=== PATIENT | male | born 1970 | race Caucasian/White ===

== ENCOUNTER 2016-10-29 15:02 | Emergency (ER) | payer MEDICARE, OTHER ==
--- NOTE | 2016-10-30 01:50 | RAD ---
THREE VIEWS OF THE LEFT ANKLE COMPARISON: None. HISTORY: Left ankle pain. FINDINGS: Three views of the left ankle show no evidence of acute fracture or dislocation. No degenerative ch anges are seen. Mild soft tissue swelling is seen. IMPRESSION: Unremarkable exam. POS: [facility]
--- NOTE | 2016-10-30 05:57 | RAD ---
THREE VIEWS OF THE LEFT FOOT COMPARISON: None. HISTORY: Left foot pain. FINDINGS: Three views of the left foot show no evidence of acute fracture or dislocation. No degenerative orlin nges are seen. No soft tissue swelling is present. IMPRESSION: No evidence of acute osseous abnormality. POS: [facility]
== END 2016-10-29 16:20 | disposition home or self-care (01) ==
LOC: NAV ERS 15:02
DX: S93.402A Sprain of unspecified ligament of left ankle, initial encounter (principal); F17.210 Nicotine dependence, cigarettes, uncomplicated; F17.220 Nicotine dependence, chewing tobacco, uncomplicated; X58.XXXA Exposure to other specified factors, initial encounter

== ENCOUNTER 2016-12-13 12:37 | Outpatient (CLI) | payer MEDICARE, OTHER ==
[2016-12-13 13:39] LABS: ALT (SGPT) 17 U/L (0-55); AST (SGOT) 31 U/L (5-34); Albumin 4.1 g/dL (3.4-4.8); Alkaline Phosphatase 81 U/L (40-150); Anion Gap 15 mmol/L (10-20); BUN (Urea Nitrogen) 20 mg/dL (8.4-25.7); Bilirubin, Total 0.6 mg/dL (0.2-1.2); Calc. Creatinine Clearance 0 mL/min (70-130); Carbon Dioxide 28 mmol/L (23-31); Chloride 101 mmol/L (98-107); Estimated GFR-MDRD 63; Globulin 3.2 g/dL (2.4-3.5); Glucose 133 mg/dL (83-110); Potassium 3.3 mmol/L (3.5-5.1); Protein, Total 7.3 g/dL (5.8-8.1); Sodium 141 mmol/L (136-145)
[2016-12-13 14:04] LABS: #Basophils 0.2 thou/uL (0.0-0.2); #Eosinphils 0.4 thou/uL (0.0-0.7); #Lymphocytes 0.8 thou/uL (1.20-3.40); #Neutrophils 4.2 thou/uL (1.40-6.50); %Basophils 2.7 % (0.0-1.0); %Eosinophils 6.1 % (0.0-10.0); %Lymphocytes 12.1 % (21.0-51.0); %Monocytes 14.5 % (0.0-10.0); %Neutrophils 64.7 % (42.0-75.0); Hemoglobin 13.7 g/dL (14.0-18.0); Mean Corpuscular HGB CONC 33.6 g/dL (32.0-36.0); Mean Corpuscular Hemoglobin 30.4 pg (27.0-31.0); Mean Corpuscular Volume 90.3 fl (80.0-94.0); Mean Platelet Volume 8.8 fL (7.4-10.4); Platelet Count 181 thou/uL (130-400); RBC Distribution Width 13.3 % (11.5-14.5); Red Blood Cell (RBC) Count 4.51 mill/uL (4.70-6.10); White Blood Cell (WBC) Count 6.5 thou/uL (4.8-10.8)
[2016-12-13 14:05] LABS: Giant Platelets SLIGHT; MDiff Complete? YES; PLT Morphology Comment Appears Adequate
== END 2016-12-13 12:38 | disposition home or self-care (01) ==
LOC: NAV LAB 12:37
PROVIDERS: ATTEND Internal Medicine
DX: Z01.818 Encounter for other preprocedural examination (principal)
CPT/HCPCS: 36415; 80053; 85025; 93005

== ENCOUNTER 2017-01-25 09:38 | Emergency (ER) | payer MEDICARE, OTHER ==
[2017-01-25] MEDS ORDERED: HYDROcodone/Acetaminophen 5/325 mg Tablet ONE (10:13)
[2017-01-25 11:01] LABS: #Basophils 0.1 thou/uL (0.0-0.2); #Eosinphils 0.3 thou/uL (0.0-0.7); #Lymphocytes 1.2 thou/uL (1.20-3.40); %Basophils 1.5 % (0.0-1.0); %Eosinophils 4.3 % (0.0-10.0); %Lymphocytes 17.8 % (21.0-51.0); %Monocytes 15.3 % (0.0-10.0); %Neutrophils 61.1 % (42.0-75.0); Hemoglobin 10.6 g/dL (14.0-18.0); Mean Corpuscular HGB CONC 33.1 g/dL (32.0-36.0); Mean Corpuscular Hemoglobin 28.5 pg (27.0-31.0); Mean Corpuscular Volume 86.2 fl (80.0-94.0); Mean Platelet Volume 7.5 fL (7.4-10.4); Platelet Count 175 thou/uL (130-400); Red Blood Cell (RBC) Count 3.73 mill/uL (4.70-6.10); White Blood Cell (WBC) Count 6.6 thou/uL (4.8-10.8)
--- NOTE | 2017-01-25 11:11 | RAD ---
THREE VIEW LEFT SHOULDER: Indication: Pain. FINDINGS: Moderate osteoarthritis is present. No fracture or dislocation. IMPRESSION: Osteoarthritis. POS: [facility]
[2017-01-25 11:15] LABS: Troponin I 0.017 ng/mL (< 0.028)
[2017-01-25 11:16] LABS: Anion Gap 18 mmol/L (10-20); BUN (Urea Nitrogen) 21 mg/dL (8.4-25.7); Calc. Creatinine Clearance 0 mL/min (70-130); Carbon Dioxide 26 mmol/L (23-31); Chloride 98 mmol/L (98-107); Estimated GFR-MDRD 54; Glucose 123 mg/dL (83-110); Potassium 3.7 mmol/L (3.5-5.1); Sodium 138 mmol/L (136-145)
== END 2017-01-25 11:57 | disposition home or self-care (01) ==
LOC: NAV ERS 09:38
DX: M19.012 Primary osteoarthritis, left shoulder (principal); I10 Essential (primary) hypertension; E78.5 Hyperlipidemia, unspecified; F17.220 Nicotine dependence, chewing tobacco, uncomplicated; Z79.899 Other long term (current) drug therapy
CPT/HCPCS: 80048; 84484; 85025; 85652; 86140; 93005

== ENCOUNTER 2017-01-30 14:09 | Outpatient (CLI) | payer MEDICARE, OTHER ==
--- NOTE | 2017-01-30 18:07 | CT ---
CT LEFT SHOULDER NONCONTRAST: History Left shoulder pain. Arthritis. FINDINGS: No acute fracture or dislocation are apparent. There are severe osteoarthritic changes to the gleno humeral joint including loss of joint space, osteophytosis, and a large subcortical cyst within the glenoid. Degenerative changes of the acromioclavicular joint are also apparent. Within the superior segment left lower lobe, linear atelectasis or scarring is present. More inferi josh within the left lower lobe, there is ill-defined atelectasis. An oval noncalcified 1.0 cm subp leural nodule is also evident. IMPRESSION: 1. Severe osteoarthritic changes of the left glenohumeral joint. No acute osseous abnormalities of the shoulder are demonstrated. 2. Right lower lobe pulmonary nodule partially visualized. Please consider full dedicated CT chest , with IV contrast, for full evaluation of the chest and better characterization. POS: [facility]
== END 2017-01-30 14:10 | disposition home or self-care (01) ==
LOC: NAV CT 14:09
PROVIDERS: ATTEND Internal Medicine
DX: M79.602 Pain in left arm (principal); R91.1 Solitary pulmonary nodule

== ENCOUNTER 2017-02-28 14:50 | Outpatient (CLI) | payer MEDICARE, OTHER ==
[2017-02-28 15:56] LABS: #Basophils 0.1 thou/uL (0.0-0.2); #Eosinphils 0.1 thou/uL (0.0-0.7); #Lymphocytes 0.9 thou/uL (1.20-3.40); #Monocytes 0.8 thou/uL (0.11-0.59); #Neutrophils 5.4 thou/uL (1.40-6.50); %Basophils 1.5 % (0.0-1.0); %Eosinophils 1.1 % (0.0-10.0); %Lymphocytes 12.1 % (21.0-51.0); %Monocytes 11.5 % (0.0-10.0); %Neutrophils 73.8 % (42.0-75.0); Hemoglobin 11.5 g/dL (14.0-18.0); Mean Corpuscular HGB CONC 32.7 g/dL (32.0-36.0); Mean Corpuscular Hemoglobin 28.9 pg (27.0-31.0); Mean Corpuscular Volume 88.2 fl (80.0-94.0); Mean Platelet Volume 9.1 fL (7.4-10.4); Platelet Count 117 thou/uL (130-400); RBC Distribution Width 14.7 % (11.5-14.5); Red Blood Cell (RBC) Count 3.98 mill/uL (4.70-6.10); White Blood Cell (WBC) Count 7.3 thou/uL (4.8-10.8)
--- NOTE | 2017-03-01 07:58 | RAD ---
TWO VIEW CHEST: 02/28/17 COMPARISON: 09/06/16 CLINICAL HISTORY: Lung cancer, adenopathy and pulmonary infiltrate. FINDINGS: There are patchy bibasilar opacities. The cardiac silhouette is enlarged with prominence of the pulm onary vasculature. The lungs are hyperinflated with interstitial prominence. Chest is otherwise rusty lar in appearance. IMPRESSION: Bibasilar opacities may be on the basis of atelectasis or pneumonia. No significant effusion. Enlarged cardiac silhouette and pulmonary vasculature indicating CHF. POS: [facility]
== END 2017-02-28 14:51 | disposition home or self-care (01) ==
LOC: NAV RAD 14:50
PROVIDERS: ATTEND Internal Medicine
DX: R91.8 Other nonspecific abnormal finding of lung field (principal)
CPT/HCPCS: 71020; 85025

== ENCOUNTER 2017-05-01 08:33 | Outpatient (CLI) | payer MEDICARE, OTHER ==
[2017-05-01 12:52] LABS: Anion Gap 19 mmol/L (10-20); BUN (Urea Nitrogen) 16 mg/dL (8.4-25.7); Calc. Creatinine Clearance 0 mL/min (70-130); Calcium 8.9 mg/dL (7.8-10.44); Carbon Dioxide 29 mmol/L (23-31); Chloride 99 mmol/L (98-107); Estimated GFR-MDRD 60; Glucose 114 mg/dL (83-110); Potassium 3.6 mmol/L (3.5-5.1); Sodium 143 mmol/L (136-145)
[2017-05-01 14:03] LABS: Hemoglobin 12.8 g/dL (14.0-18.0); Mean Corpuscular HGB CONC 31.5 g/dL (32.0-36.0); Mean Corpuscular Hemoglobin 28.8 pg (27.0-31.0); Mean Corpuscular Volume 91.3 fl (80.0-94.0); Mean Platelet Volume 8.2 fL (7.4-10.4); Platelet Count 190 thou/uL (130-400); RBC Distribution Width 17.2 % (11.5-14.5); Red Blood Cell (RBC) Count 4.43 mill/uL (4.70-6.10); White Blood Cell (WBC) Count 5.9 thou/uL (4.8-10.8)
[2017-05-01 14:04] LABS: Lymphocytes 21 % (21-51); MDiff Complete? YES; Monocytes 19 % (0-10); Neutrophil 60 % (42-75); PLT Morphology Comment Appears Adequate
== END 2017-05-01 08:34 | disposition home or self-care (01) ==
LOC: NAVSJIPCSP 08:33
PROVIDERS: ATTEND Urology
DX: N40.1 Benign prostatic hyperplasia with lower urinary tract symptoms (principal); M10.9 Gout, unspecified; Z79.899 Other long term (current) drug therapy
CPT/HCPCS: 36415; 80048; 84153; 84550; 85025

== ENCOUNTER 2017-05-03 11:03 | Outpatient (CLI) | payer MEDICARE, OTHER ==
[2017-05-03 13:19] LABS: Anion Gap 17 mmol/L (10-20); BUN (Urea Nitrogen) 16 mg/dL (8.4-25.7); Calc. Creatinine Clearance 0 mL/min (70-130); Calcium 8.6 mg/dL (7.8-10.44); Carbon Dioxide 30 mmol/L (23-31); Chloride 98 mmol/L (98-107); Estimated GFR-MDRD 71; Glucose 107 mg/dL (83-110); Potassium 3.2 mmol/L (3.5-5.1); Sodium 142 mmol/L (136-145)
== END 2017-05-03 11:04 | disposition home or self-care (01) ==
LOC: NAVSJIPCSP 11:03
PROVIDERS: ATTEND Internal Medicine
DX: R60.1 Generalized edema (principal)
CPT/HCPCS: 36415; 80048; 83880

== ENCOUNTER 2017-05-16 11:05 | Outpatient (CLI) | payer MEDICARE, OTHER ==
--- NOTE | 2017-05-16 15:47 | CT ---
CT LEFT ANKLE WITHOUT CONTRAST 05/16/17 HISTORY: Left ankle pain and swelling for three months. No injury. COMPARISON: Ankle radiographs from October 2016. FINDINGS: BONES: There is no acute fracture or malalignment. There is some small osteophytes of the posterior margin of the tibial lip and anterior tibial lip. There is some mild degenerative changes of the syndesmosi s. There is a small enthesophyte of the ATFL origin of the fibula. No large erosions. Lisfranc interval is maintained. SOFT TISSUES: There is circumferential soft tissue edema. This is probably within the superficial soft tissues wit h only minimal edema within the deep fascial soft tissues. TENDONS: Achilles tendon is intact. The extensor and flexor tendons are intact. Peroneal tendons are intact. IMPRESSION: 1. No acute osseous abnormality with only chronic changes as described above. 2. Circumferential soft tissue edema and swelling suggests cellulitis or lymphedema. POS: [facility]
== END 2017-05-16 11:06 | disposition home or self-care (01) ==
LOC: NAV CT 11:05
PROVIDERS: ATTEND Internal Medicine
DX: M25.572 Pain in left ankle and joints of left foot (principal)

== ENCOUNTER 2017-06-06 11:05 | Outpatient (CLI) | payer MEDICARE, OTHER ==
[2017-06-06 12:47] LABS: Anion Gap 16 mmol/L (10-20); BUN (Urea Nitrogen) 23 mg/dL (8.4-25.7); Calc. Creatinine Clearance 0 mL/min (70-130); Calcium 9.6 mg/dL (7.8-10.44); Carbon Dioxide 25 mmol/L (23-31); Chloride 107 mmol/L (98-107); Estimated GFR-MDRD 70; Glucose 102 mg/dL (83-110); Potassium 4.7 mmol/L (3.5-5.1); Sodium 143 mmol/L (136-145)
== END 2017-06-06 11:06 | disposition home or self-care (01) ==
LOC: NAVSJIPCSP 11:05
PROVIDERS: ATTEND Internal Medicine
DX: I50.22 Chronic systolic (congestive) heart failure (principal)
CPT/HCPCS: 36415; 80048; 83880

== ENCOUNTER 2018-04-02 14:16 | Outpatient (CLI) | payer MEDICARE, OTHER ==
--- NOTE | 2018-04-02 16:03 | RAD ---
FACIAL BONES THREE VIEW: 04/02/18 HISTORY: Cellulitis. COMPARISON: None. FINDINGS: The paranasal sinuses appears clear. The mastoids are clear. The frontal sinuses are clear. Multiple dental implants. 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 IMPRESSION: No acute osseous abnormality. POS: [facility]
== END 2018-04-02 14:17 | disposition home or self-care (01) ==
LOC: NAV RAD 14:16
PROVIDERS: ATTEND Internal Medicine
DX: L03.211 Cellulitis of face (principal)
CPT/HCPCS: 70150

== ENCOUNTER 2019-04-16 10:41 | Outpatient (CLI) | payer MEDICARE, OTHER ==
--- NOTE | 2019-04-16 11:59 | CT ---
EXAM: CT Pelvis WO Con PROVIDED CLINICAL HISTORY: Right hip pain in a patient with history of cancer. COMPARISON: 12/10/2018. FINDINGS: No suspicious lytic or sclerotic osseous lesions are identified. Degenerative changes are seen in the lower lumbar spine. No fracture or dislocation is seen involving the hips bilaterally. Urinary bladder is decompressed. No free fluid, fluid collection, or lymphadenopathy is seen in the pelvis. There is colonic diverticulosis. There is suggestion of mild inflammatory changes adjacent to the mid sigmoid colon in the lower pelvis. Mild diverticulitis cannot be excluded based on this exam. Clinical correlation is suggested. The appendix is visualized and normal in caliber. Vascular calcifications are seen in the iliac arteries. IMPRESSION: 1. Colonic diverticulosis involving the descending and sigmoid colon with suggestion of minimal infla mmatory changes adjacent to the mid sigmoid colon, and early diverticulitis cannot be entirely excluded. Clinical correlation is suggested. 2. No suspicious lytic or sclerotic osseous lesions are seen, and there is no fracture or dislocation involving the hips bilaterally. 3. Degenerative changes of the lumbar spine.
== END 2019-04-16 10:42 | disposition home or self-care (01) ==
LOC: NAV CT 10:41
PROVIDERS: ATTEND Internal Medicine
DX: M25.552 Pain in left hip (principal); K57.30 Diverticulosis of large intestine without perforation or abscess without bleeding; M47.816 Spondylosis without myelopathy or radiculopathy, lumbar region
CPT/HCPCS: 72192

== ENCOUNTER 2019-10-27 12:49 | Outpatient (CLI) | payer MEDICARE, OTHER ==
--- NOTE | 2019-10-27 13:40 | RAD ---
LUMBAR SPINE 3 VIEWS: HISTORY: Low back pain. COMPARISON: 05/20/2019. FINDINGS: There are 5 lumbar type vertebrae. Rightward convex rotatory scoliotic curvature is similar to prior CT exams. Vertebral body heights and AP alignment are maintained. Osteophytosis throughout the vertebral bodies and facets. No acute fracture or dislocation are apparent. There is calcification wi thin the arterial structures. The right L3 pedicle and transverse process are not well visualized, although this is favored to be r otational and artifactual. They were intact on recent CT scan. The CT scan from 09/19/2019 was closely reviewed. In retrospect on that exam, there is a soft tissue m ass and destructive process involving the right L4 transverse process and the lateral aspect of the pedicle. 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 Likely the cause of low back pain. Angelica T. Transcribed Date/Time: 10/27/2019 2:06 PM
== END 2019-10-27 12:50 | disposition home or self-care (01) ==
LOC: NAV RAD 12:49
PROVIDERS: ATTEND Nurse Practitioner Adult Health
DX: M54.5 Low back pain (principal)
CPT/HCPCS: 72100

== ENCOUNTER 2019-11-19 13:25 | Outpatient (CLI) | payer MEDICARE, OTHER ==
[2019-11-19 13:50] LABS: #Basophils 0.1 thou/uL (0.0-0.2); #Eosinphils 0.2 thou/uL (0.0-0.7); #Lymphocytes 0.3 thou/uL (1.20-3.40); #Monocytes 0.9 thou/uL (0.11-0.59); #Neutrophils 7.1 thou/uL (1.40-6.50); %Basophils 0.8 % (0.0-1.0); %Lymphocytes 3.2 % (21.0-51.0); %Monocytes 10.8 % (0.0-10.0); %Neutrophils 83.2 % (42.0-75.0); Hemoglobin 9.5 g/dL (14.0-18.0); Mean Corpuscular HGB CONC 31.1 g/dL (32.0-36.0); Mean Corpuscular Hemoglobin 29.9 pg (27.0-31.0); Mean Corpuscular Volume 95.9 fL (78.0-98.0); Mean Platelet Volume 6.7 fL (7.4-10.4); Platelet Count 419 thou/uL (130-400); RBC Distribution Width 16.8 % (11.5-14.5); Red Blood Cell (RBC) Count 3.17 mill/uL (4.70-6.10); White Blood Cell (WBC) Count 8.5 thou/uL (4.8-10.8)
[2019-11-19 14:07] LABS: ALT (SGPT) 12 U/L (8-55); AST (SGOT) 20 U/L (5-34); Albumin 2.9 g/dL (3.4-4.8); Alkaline Phosphatase 71 U/L (40-110); Anion Gap 15 mmol/L (10-20); BUN (Urea Nitrogen) 12 mg/dL (8.4-25.7); Bilirubin, Total 0.6 mg/dL (0.2-1.2); Calc. Creatinine Clearance 0 mL/min (70-130); Calcium 7.9 mg/dL (7.8-10.44); Carbon Dioxide 24 mmol/L (23-31); Chloride 102 mmol/L (98-107); Estimated GFR-MDRD Greater than 90; Globulin 2.5 g/dL (2.4-3.5); Glucose 117 mg/dL (83-110); Potassium 4.6 mmol/L (3.5-5.1); Protein, Total 5.4 g/dL (5.8-8.1); Sodium 136 mmol/L (136-145)
[2019-11-19 15:11] LABS: INR-International Normal Ratio 1.2; Prothrombin Time 15.5 SEC (12.0-14.7)
== END 2019-11-19 13:26 | disposition home or self-care (01) ==
LOC: NAV EKG 13:25
PROVIDERS: ATTEND Internal Medicine
DX: C64.9 Malignant neoplasm of unspecified kidney, except renal pelvis (principal); G62.2 Polyneuropathy due to other toxic agents; I10 Essential (primary) hypertension
CPT/HCPCS: 80053; 85025; 85610; 85730